=== PATIENT | female | born 1975 | race Caucasian/White ===

== ENCOUNTER 2020-03-11 11:01 | Outpatient (CLI) | payer SELFPAY | END 2020-03-11 23:59 | disposition home or self-care (01) | LOC: STAR 11:01 | PROVIDERS: ATTEND Obstetrics & Gynecology | DX: Z20.822 Contact with and (suspected) exposure to COVID-19 (principal) | CPT/HCPCS: 87635 ==

== ENCOUNTER 2020-03-15 05:39 | Inpatient (IN) | payer OTHER ==
[~2020-03-15] VITALS: Ht 167.6 cm; Wt 104.1 kg
[2020-03-15] MEDS ORDERED: LACTATED RINGERS 1,000 ML IVBOLUS ONE (06:00)
[2020-03-15] MEDS ORDERED: METOCLOPRAMIDE 5 MG/ML, 2ML IV ONE (06:00)
[2020-03-15] MEDS ORDERED: SODIUM CITRATE/CITRIC ACID 30 ML UDC PO ONE (06:00)
[2020-03-15] MEDS: PLEASE ENTER ALLERGIES MC SCH ×2 (06:00→11:00)
[2020-03-15 06:04] VITALS: BP 102/61
[2020-03-15 06:05] LABS: BASOPHILS % (AUTO) 0 % (0-1); EOSINOPHILS % (AUTO) 1 % (1-7); LYMPHOCYTES % (AUTO) 20 % (22-44); MEAN CORPUSCULAR HEMOGLOBIN 29.5 pg (27.0-34.8); MEAN CORPUSCULAR HGB CONC 33.6 g/dL (32.4-35.8); MEAN PLATELET VOLUME 7.8 fL (7.4-10.4); MONOCYTES % (AUTO) 6 % (2-9); NEUTROPHILS % (AUTO) 72 % (42-75); PLATELET COUNT 314 x10^3/uL (130-400); RED BLOOD COUNT 3.86 x10^6/uL (3.82-5.3); RED CELL DISTRIBUTION WIDTH 14.3 % (9.6-15.2)
[2020-03-15 06:10] LABS: MD NO
[2020-03-15] MEDS ORDERED: SODIUM CITRATE/CITRIC ACID 15 ML UDC ONE (06:25)
[2020-03-15] MEDS ORDERED: METOCLOPRAMIDE 5 MG/ML, 2ML ONE (06:25)
[2020-03-15] MEDS ORDERED: OXYTOCIN 30U/ 0.9% NaCL 500ML 500 ML ONE (06:26)
[2020-03-15 06:41] LABS: AMPHETAMINE SCREEN, URINE Negative (Negative); BARBITURATE SCREEN, URINE Negative (Negative); BENZODIAZEPINE SCREEN, URINE Negative (Negative); CANNABINOID SCREEN, URINE Negative (Negative); COCAINE SCREEN, URINE Negative (Negative); METHADONE SCREEN, URINE Negative (Negative); OPIATE SCREEN, URINE Negative (Negative)
[2020-03-15] MEDS ORDERED: morphine SULFATE/PF 0.5 MG/ML, 10ML ONE (07:10)
[2020-03-15] MEDS ORDERED: EPINEPHRINE 1 MG/ML, 1ML ONE (07:21)
[2020-03-15] MEDS ORDERED: MORPHINE SULFATE 4 MG/ML, 1ML IVPush PRN (08:00)
[2020-03-15] MEDS ORDERED: morphine SULFATE 10 MG/ML, 1ML IVPush PRN (08:00)
[2020-03-15] MEDS ORDERED: DIPH,PERTUSS(ACELL),TET VAC/PF NC IM-VACC PRN (08:00)
[2020-03-15] MEDS ORDERED: SIMETHICONE 80 MG CHEW TAB PO PRN (08:00)
[2020-03-15] MEDS ORDERED: MEASLES,MUMPS&RUBELLA VACC/PF 0.5 ML SQ-VACC PRN (08:00)
[2020-03-15] MEDS ORDERED: MISOPROSTOL 200 MCG TABLET PR PRN (08:00)
[2020-03-15] MEDS ORDERED: ACETAMINOPHEN 325 MG TABLET PO PRN ×2 (08:00)
[2020-03-15] MEDS ORDERED: CALCIUM CARBONATE 500 MG TAB.CHEW PO PRN (08:00)
[2020-03-15] MEDS: PRENATAL VIT/IRON/FA 1 EACH TABLET PO SCH (09:00)
[2020-03-15] MEDS: OXYTOCIN 30U/ 0.9% NaCL 500ML 500 ML IV SCH ×2 (09:10→18:00)
[2020-03-15] MEDS ORDERED: OXYcodone 5 MG/5 ML ORAL.SOL UDC ONE (09:31)
[2020-03-15] MEDS ORDERED: KETOROLAC 30 MG/1 ML ONE (09:32)
[2020-03-15] MEDS: KETOROLAC 30 MG/1 ML IV SCH ×3 (09:37→21:30)
[2020-03-15] MEDS: LACTATED RINGERS 1,000 ML IV SCH ×4 (09:56→19:11)
[2020-03-15] MEDS ORDERED: KETOROLAC 30 MG/1 ML IVPush PRN (10:00)
[2020-03-15] MEDS ORDERED: HYDROmorphone 1 MG/ML, 1ML INJ IVPush PRN (10:00)
[2020-03-15] MEDS ORDERED: KETOROLAC 30 MG/1 ML IVPush SCH (10:00)
[2020-03-15] MEDS ORDERED: OXYcodone/APAP 5/325MG TABLET PO PRN (10:00)
[2020-03-15] MEDS ORDERED: ONDANSETRON 2MG/ML, 2ML IVPush PRN (10:00)
[2020-03-15] MEDS ORDERED: DIPHENHYDRAMINE 50 MG/ML, 1ML IV PRN (10:00)
[2020-03-15] MEDS ORDERED: NALOXONE 0.4 MG/ML, 1ML IV PRN (10:00)
[2020-03-15] MEDS ORDERED: OXYcodone 5 MG/5 ML ORAL.SOL UDC PO PRN (10:00)
[2020-03-15 11:00] VITALS: BP 100/65
[2020-03-15] MEDS ORDERED: ONDANSETRON 2MG/ML, 2ML ONE ×2 (11:23→16:12)
[2020-03-15] MEDS: ONDANSETRON 2MG/ML, 2ML IV PRN ×2 (11:26→17:26)
[2020-03-15 12:20] VITALS: BP 124/67
[2020-03-15] MEDS: OXYcodone/APAP 5/325MG TABLET PO PRN ×2 (14:11→18:17)
[2020-03-15 16:12] LABS: BASOPHILS % (AUTO) 0 % (0-1); EOSINOPHILS % (AUTO) 0 % (1-7); LYMPHOCYTES % (AUTO) 6 % (22-44); MD NO; MEAN CORPUSCULAR HEMOGLOBIN 29.4 pg (27.0-34.8); MEAN CORPUSCULAR HGB CONC 33.2 g/dL (32.4-35.8); MEAN PLATELET VOLUME 7.6 fL (7.4-10.4); MONOCYTES % (AUTO) 5 % (2-9); NEUTROPHILS % (AUTO) 89 % (42-75); PLATELET COUNT 254 x10^3/uL (130-400); RED BLOOD COUNT 3.22 x10^6/uL (3.82-5.3); RED CELL DISTRIBUTION WIDTH 14.1 % (9.6-15.2)
[2020-03-15] MEDS ORDERED: OXYTOCIN 10 UNITS/ML, 1ML ONE (16:12)
[2020-03-15] MEDS ORDERED: EPHEDRINE 50 MG/ML, 1ML ONE (16:12)
[2020-03-15] MEDS ORDERED: PHENYLEPHRINE 10 MG/ML ONE (16:12)
[2020-03-15] MEDS ORDERED: WATER-INJECTION,STERILE 10 ML IV ONE (16:12)
[2020-03-15] MEDS ORDERED: CEFAZOLIN 1,000 MG ONE (16:12)
[2020-03-15 16:25] VITALS: BP 108/67
[2020-03-15 20:00] VITALS: BP 103/69
[2020-03-16] VITALS: BP 108/64
[2020-03-16] MEDS: KETOROLAC 30 MG/1 ML IV SCH ×4 (03:14→20:54)
[2020-03-16] MEDS: OXYcodone/APAP 5/325MG TABLET PO PRN ×5 (03:14→20:16)
[2020-03-16 04:00] VITALS: BP 112/65
[2020-03-16] MEDS: OXYTOCIN 30U/ 0.9% NaCL 500ML 500 ML IV SCH ×2 (04:00→14:00)
[2020-03-16] MEDS: LACTATED RINGERS 1,000 ML IV SCH ×5 (04:00→16:00)
[2020-03-16] MEDS ORDERED: DOCUSATE 100 MG CAPSULE PO PRN (05:30)
[2020-03-16 07:45] VITALS: BP 108/71
[2020-03-16] MEDS: PRENATAL VIT/IRON/FA 1 EACH TABLET PO SCH (07:54)
[2020-03-16] MEDS: DOCUSATE 100 MG CAPSULE PO PRN ×2 (07:56→20:16)
[2020-03-16] MEDS: MAGNESIUM HYDROXIDE 8%, 30ML UDC PO SCH (07:58)
[2020-03-16] MEDS ORDERED: FERROUS SULFATE 325 MG TABLET PO SCH (17:00)
[2020-03-16 20:00] VITALS: BP 118/77
[2020-03-17] MEDS: OXYcodone/APAP 5/325MG TABLET PO PRN ×3 (01:06→09:06)
[2020-03-17] MEDS: IBUPROFEN 600 MG TABLET PO PRN ×2 (03:41→09:06)
[2020-03-17] MEDS ORDERED: OXYC1TAB14 PO (06:43)
[2020-03-17] MEDS ORDERED: FERR-51 PO (06:43)
[2020-03-17] MEDS ORDERED: IBUP-1222 PO (06:43)
[2020-03-17] MEDS ORDERED: DOCU-131 PO (06:43)
[2020-03-17 08:55] VITALS: BP 112/73
[2020-03-17] MEDS: DOCUSATE 100 MG CAPSULE PO PRN (09:06)
[2020-03-17] MEDS: PRENATAL VIT/IRON/FA 1 EACH TABLET PO SCH (09:06)
[2020-03-17] MEDS: MAGNESIUM HYDROXIDE 8%, 30ML UDC PO SCH (09:07)
== END 2020-03-17 10:41 | disposition home or self-care (01) | DRG 784 ==
LOC: LDIP 05:39 → 2NW 11:14
PROVIDERS: ADMIT Obstetrics & Gynecology; ATTEND Obstetrics & Gynecology
PROC: 0UB70ZZ Excision of Bilateral Fallopian Tubes, Open Approach (ICD-10-PCS; principal; 2020-03-15)
PROC: 10D00Z1 Extraction of Products of Conception, Low, Open Approach (ICD-10-PCS; 2020-03-15)
DX: O32.1XX0 Maternal care for breech presentation, not applicable or unspecified (principal); D62 Acute posthemorrhagic anemia; F10.20 Alcohol dependence, uncomplicated; O99.314 Alcohol use complicating childbirth; O90.81 Anemia of the puerperium; Z20.822 Contact with and (suspected) exposure to COVID-19; Z37.0 Single live birth; Z3A.39 39 weeks gestation of pregnancy
CPT/HCPCS: 36415; 80307; 85025; 86592; 86850; 86900; 88302; G0378; J0171; J0690; J1885; J2274; J2405; J2370; J2590; J2765; J7120

== ENCOUNTER 2020-03-21 14:05 | Emergency (ER) | payer OTHER ==
[~2020-03-21] VITALS: Ht 167.6 cm; Wt 99.0 kg
[~2020-03-21 14:05] MED LIST: DOCU-131 PO; FERR-51 PO; IBUP-1222 PO; OXYC1TAB14 PO
--- NOTE | 2020-03-21 15:30 | NUR ---
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
--- NOTE | 2020-03-21 15:40 | NUR ---
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
[2020-03-21 15:54] LABS: ALBUMIN 2.8 g/dL (3.4-5.0); ANION GAP 7 mmol/L (5-15); CALCIUM 8.5 mg/dL (8.5-10.1); CHLORIDE 113 mmol/L (98-107); CREATININE 0.78 mg/dL (0.55-1.02)
--- NOTE | 2020-03-21 15:54 | NUR ---
PT HAD C SECTION ON SATURDAY. PT REPORTS FEELING SOB AND ANXIOUS LAST NIGHT. CAME TO ER TO GET CHECKED OUT. PT STATES "IM FEELING BETTER NOW, NOT SO MUCH SOB, BUT I AM JUST NERVOUS FOR MY BABIES." PT GIVEN WARM BLANKETS. RESTING IN GURNEY. EKG COMPLETE. LABS DRAWN. US COMPLETE. CONNECTED TO MONITORING EQUIPMENT
[2020-03-21 15:55] LABS: BASOPHILS % (AUTO) 0 % (0-1); EOSINOPHILS % (AUTO) 0 % (1-7); LYMPHOCYTES % (AUTO) 13 % (22-44); MEAN CORPUSCULAR HGB CONC 33.9 g/dL (32.4-35.8); MEAN PLATELET VOLUME 7.9 fL (7.4-10.4); MONOCYTES % (AUTO) 5 % (2-9); NEUTROPHILS % (AUTO) 82 % (42-75); PLATELET COUNT 299 x10^3/uL (130-400); RED BLOOD COUNT 3.06 x10^6/uL (3.82-5.3); RED CELL DISTRIBUTION WIDTH 14.2 % (9.6-15.2)
[2020-03-21 15:58] VITALS: BP 144/77
[2020-03-21 15:58] LABS: MD NO
[2020-03-21 16:57] LABS: ALANINE AMINOTRANSFERASE 39 U/L (12-78); ALBUMIN 2.8 g/dL (3.4-5.0)
[2020-03-21 16:59] LABS: ALKALINE PHOSPHATASE 81 U/L (45-117); BILIRUBIN,TOTAL 0.2 mg/dL (0.2-1.0); TOTAL PROTEIN 6.3 g/dL (6.4-8.2)
[2020-03-21 17:06] LABS: BILIRUBIN, DIRECT < 0.1 mg/dL (0.1-0.2); BILIRUBIN,INDIRECT 0.1 mg/dL (0.0-2.0)
[2020-03-21 17:59] LABS: MICROSCOPIC INDICATED
== END 2020-03-21 18:31 | disposition home or self-care (01) ==
LOC: ED 16:13
DX: R06.00 Dyspnea, unspecified (principal); R60.0 Localized edema; D62 Acute posthemorrhagic anemia; M79.604 Pain in right leg; R07.9 Chest pain, unspecified; R06.01 Orthopnea
CPT/HCPCS: 36415; 71045; 80048; 80076; 81001; 82040; 85025; 87086; 93005; 99285